=== PATIENT | female | born 2000 | race Asian ===

== ENCOUNTER 2024-04-14 16:15 | Emergency (ER) | payer OTHER, SELFPAY ==
[2024-04-14 16:31] VITALS: BP 129/87
[2024-04-14 16:56] LABS: % Basophils 1.3 % (0-2); % Immature Granulocytes 0.3 % (0-0.5); % Lymphocytes 22.2 % (20.5-51.1); % Monocytes 4.2 % (1.7-9.3); Absolute Basophils 0.1 10^3/uL (0-0.2); Absolute Eosinophils 0.4 10^3/uL (0-0.7); Absolute Lymphocytes 2.4 10^3/uL (1.2-3.4); Absolute Monocytes 0.5 10^3/uL (0.1-0.6); Absolute Neutrophils 7.2 10^3/uL (1.4-6.5); Hematocrit 39.9 % (37.0-47.0); Hemoglobin 13.2 g/dL (12.0-16.0); Mean Corp Hgb Conc. 33.1 g/dL (33.0-37.0); Mean Corpuscular Volume 81.6 fL (81.0-99.0); Mean Platelet Volume 8.5 fL (7.4-10.4); Nucleated Red Blood Cells % 0 %; Platelet Count 358 10^3/uL (130-400); Red Blood Cell Count 4.89 10^6/uL (4.20-5.40); Red Cell Dist. Width 13.5 % (11.5-14.5); White Blood Cell Count 10.6 10^3/uL (4.8-10.8)
[2024-04-14 17:13] LABS: HCG, Serum Qualitative Screen Negative
[2024-04-14 17:14] LABS: ALT (SGPT) 29 U/L (0-35); AST (SGOT) 23 U/L (14-36); Albumin 5.1 g/dl (3.5-5.0); Alkaline Phosphatase 75 U/L (38-126); Blood Urea Nitrogen 15 mg/dl (7-17); Calcium 10.2 mg/dl (8.4-10.2); Carbon Dioxide 22 mmol/L (22-30); Chloride 101 mmol/L (98-107); Glucose 138 mg/dl (70-99); Potassium 4.2 mmol/L (3.5-5.1); Sodium 136 mmol/L (135-145); Total Bilirubin 1.1 mg/dl (0.2-1.3); eGFR > 60.00
[2024-04-14 17:54] LABS: Lipase 58 U/L (23-300)
--- NOTE | 2024-04-14 19:59 | ED.GENMED ---
History of Present Illness
General
Chief Complaint: Abdominal Pain
Source: patient
Time Seen by Provider: 04/14/24 19:43
History of Present Illness
History of Present Illness:
4-year-old female presents to the emergency room complaining of left upper quad abdominal pain. Pain is intermittent. It is not present actually at the time of my evaluation. Patient began having discomfort last evening after eating dinner. The
pain again was in the left upper quadrant and was dull. She took some Tums which seemed to help temporarily. Pain came back this morning to a lesser degree. This afternoon after eating she again had discomfort. She was mildly nauseous but has
not vomited. She had 1 episode of diarrhea last night. No vomiting. She denies constipation or history of constipation. She denies previous abdominal surgeries.
Past History
Past History
ED Past Medical History: Asthma
ED Past Surgical History: None
Social History
Tobacco: Smoker
Alcohol: Occasional
Drug: Marijuana
Personal: Single
Living: with family
Phy Exam
Physical Exam
Physical Exam:
General: Awake, Alert, Oriented X3. No acute distress.
Vitals: unremarkable
Head: Atraumatic
Eyes: Pupils equal, EOMI
Throat: Airway intact, no exudates
Neck: Trachea midline
Lungs: Clear and equal b/l
Heart: Regular rate, no murmurs
Abd: Soft, Nontender, No pulsatile mass
Neuro: Nonfocal
Skin: Warm, dry, no rash
Extremities: pulses equal b/l, no edema
Course
Orders/Labs/Results
Orders:
Orders
04/14/24 16:34
Test Result ONCE
04/14/24 16:47
Complete Blood Count/With Diff Urgent
Comprehensive Metabolic Panel Urgent
HCG, Serum Qualitative Screen Urgent
Lipase Urgent
04/14/24 19:58
CR Obstruct Series W/pa Chest Urgent
Comment:
Reason For Exam: intermitten abd pain
04/14/24 20:29
Urinalysis Reflex To Culture Urgent
Date Specimen was Collected: 04/14/24
Time Specimen was Collected: 20:
Urine Microscopic Reflex Cult Urgent
Urine Culture Urgent
NINI Source: U
Specimen Description:
Date Specimen was Collected: 04/14/24
Time Specimen was Collected: 20:
Abnormal Lab Results
04/14/24 04/14/24
16:47 20:29
Absolute Neuts (auto) 7.2 H 10^3/uL
(1.4-6.5)
Creatinine 0.5 L mg/dL
(0.6-1.0)
Glucose 138 H mg/dl
(70-99)
Albumin 5.1 H g/dl
(3.5-5.0)
Ur Occult Blood Reflex 2+ A
(Negative)
Leukocyte Esterase Rfl 2+ A
(Negative)
Urine RBC 3-6 A /HPF
(0-2)
Urine WBC (Reflex) 11-15 A /HPF
(0-5)
Urine Bacteria (Reflex) Many A
(Negative)
Urine Albumin (Reflex) 2+ A
(Neg - Trace)
04/14/24 16:47
04/14/24 16:47
Vital Signs
Initial and Last Documented VS:
Initial Vital Signs
Temp Pulse Resp BP Pulse Ox
98.4 F 83 18 129/87 97
04/14/24 16:31 04/14/24 16:31 04/14/24 16:31 04/14/24 16:31 04/14/24 16:31
Last Documented Vital Signs
Temp Pulse Resp BP Pulse Ox
98.4 F 83 18 129/87 97
04/14/24 16:31 04/14/24 16:31 04/14/24 16:31 04/14/24 16:31 04/14/24 16:31
MDM/Problems Addressed
Differential Diagnosis Includes:
Gastritis, constipation, ileus, viral illness
MDM/Problems Addressed:
Patient presents with left upper abdominal pain. Symptoms started after eating yesterday. Persisted today. Work appears benign. Abdominal exam is benign. Obstruction series shows normal gas pattern with perhaps increase stool burden.
Urinalysis appears contaminated. Would base any treatment on culture rather than this urinalysis. Overall the patient seems to have a benign illness. Recommend Protonix for potential gastritis.
*Radiology
Radiology exam reviewed: preliminary read by ED provider (No acute abnormality on my review of the patient's obstruction series)
*Pulse Oximetry
Patient hypoxic: no
*Critical Care Note
Total Time (30-74mins, 75-104mins- exclusive of procedures): Not Applicable
ED Attending Note
-
Portions of this chart may have been created with voice recognition software.� Occasional wrong word or��sound alike� substitutions may have occurred due to the inherent limitations of voice recognition software.
Discharge Plan
Departure
Patient Disposition: Home (Routine Discharge)
Date of Disposition: 04/14/24
Time of Disposition: 21:08
Patient with high blood pressure during this ER visit?: No
Condition: Good
Discharge Problem:
Abdominal pain, Gastritis
Instructions: Gastritis (DC), Abdominal Pain
Prescriptions:
New
pantoprazole [Protonix] 40 mg tablet,delayed release (DR/EC)
40 mg PO DAILY Qty: 30 0RF
Referrals:
NONE,* [Family Provider] -
Interventions
Interventions:
*Risk Screen - Suicide Last Done: 04/14/24 21:00
*General Assessment Last Done: 04/14/24 21:00
*Neglect/Abuse Screening Last Done: 04/14/24 21:00
*ED COVID-19 Vaccine History Last Done: 04/14/24 21:00
*Nursing Disposition Last Done: 04/14/24 21:26
ZT-[id number]-Cvtxxnkufs Assessment Last Done: 04/14/24 21:00
Discharge Date and Time
Discharge Date/Time: 04/14/24 21:44
Print Language: AMHARIC
[2024-04-14 20:39] LABS: Urine Albumin 2+ (Neg - Trace); Urine Bilirubin Negative (Negative); Urine Character Clear (Clear); Urine Color Yellow; Urine Glucose Negative (Negative); Urine Ketone Negative (Negative); Urine Leukocyte 2+ (Negative); Urine Nitrite Negative (Negative); Urine Occult Blood 2+ (Negative); Urine Urobilinogen 1+ (Neg - 1+)
[2024-04-14 21:02] LABS: Urine Mucus Many
[2024-04-14 21:03] LABS: Urine Bacteria Many (Negative)
== END 2024-04-14 21:44 | disposition home or self-care (01) ==
LOC: EMR 16:15
PROVIDERS: Emergency Medicine; EMERGENCY PHYSICIAN Emergency Medicine
DX: K29.70 Gastritis, unspecified, without bleeding (principal); R10.12 Left upper quadrant pain; F17.200 Nicotine dependence, unspecified, uncomplicated
CPT/HCPCS: 99284; 74022; 80053; 81003; 81015; 83690; 84703; 85025; 87086